=== PATIENT | female | born 1980 | race Caucasian/White ===

== ENCOUNTER 2021-02-13 15:11 | Emergency (ER) | payer MEDICAID ==
[~2021-02-13] VITALS: Ht 170.2 cm; Wt 64.0 kg
[2021-02-13] MEDS ORDERED: KETOROLAC 60MG/2ML VIAL IM ONE (17:45)
[2021-02-13] MEDS ORDERED: KETO5DRO80 EACHEYE (17:46)
[2021-02-13] MEDS ORDERED: TOPUD PO (17:46)
[2021-02-13 18:07] VITALS: BP 112/84
== END 2021-02-13 18:08 | disposition home or self-care (01) ==
LOC: ER 15:11
DX: M79.10 Myalgia, unspecified site (principal); Z76.0 Encounter for issue of repeat prescription; M19.90 Unspecified osteoarthritis, unspecified site
CPT/HCPCS: 96372; 99283; J1885

== ENCOUNTER 2021-07-20 03:40 | Emergency (ER) | payer MEDICAID ==
[~2021-07-20] VITALS: Ht 170.2 cm; Wt 63.0 kg
[~2021-07-20 03:40] MED LIST: KETO5DRO80 EACHEYE; TOPUD PO
[2021-07-20] MEDS: ONDANSETRON 4MG ODT PO ONE ×2 (05:45→06:39)
[2021-07-20] MEDS: FAMOTIDINE 20MG TABLET PO ONE ×2 (05:45→06:39)
[2021-07-20] MEDS: MAGNESIUM/ALUMINUM HYDROXIDE/SIMETHICONE 30ML UDC PO ONE ×2 (05:45→06:39)
[2021-07-20 06:23] LABS: HEMATOCRIT. 41.2 % (36.0-48.0); HEMOGLOBIN. 13.9 g/dL (12.0-16.0); MEAN CORPUSCULAR HEMOGLOBIN 30.5 pg (28.0-32.0); MEAN CORPUSCULAR VOLUME 90.2 fL (81.0-99.0); MEAN PLATELET VOLUME 8.5 fl (7.4-10.4); PLATELET 189 x1000/uL (130-400); RED BLOOD CELL COUNT 4.57 mill/uL (4.2-5.4)
[2021-07-20 06:37] LABS: CHLORIDE 108 mEq/L (98-107)
[2021-07-20 06:47] LABS: ETHANOL BLOOD < 10 mg/dL
[2021-07-20 07:38] LABS: PLATELET ESTIMATE NORMAL
[2021-07-20] MEDS ORDERED: TOPUD PO (09:58)
[2021-07-20] MEDS ORDERED: KETOROLAC 60MG/2ML VIAL IM ONE (10:15)
[2021-07-20 10:22] VITALS: BP 136/86
== END 2021-07-20 10:23 | disposition home or self-care (01) ==
LOC: ER 03:40
DX: R07.9 Chest pain, unspecified (principal); Z98.890 Other specified postprocedural states; Z59.00 Homelessness unspecified
CPT/HCPCS: 36415; 80053; 80320; 83690; 83880; 84484; 85025; 93005; 96372; 99284; J1885; Q0162; G0480